=== PATIENT | female | born 1990 | race Caucasian/White ===

== ENCOUNTER 2017-09-25 11:00 | Emergency (ER) | END 2017-09-25 11:46 | disposition home or self-care (01) ==

== ENCOUNTER 2018-08-14 16:47 | Emergency (ER) | payer SELFPAY ==
[~2018-08-14] VITALS: Ht 162.6 cm; Wt 68.7 kg
[2018-08-14 16:59] VITALS: Ht 162.6 cm; Wt 68.7 kg
[2018-08-14] MEDS ORDERED: KETOROLAC 30 MG INJ IM STA (17:33)
[2018-08-14] MEDS ORDERED: IBUP-1542 PO (19:44)
[2018-08-14] MEDS ORDERED: ACET-141 PO (19:44)
[2018-08-14] MEDS ORDERED: ONDA4TAB14 PO (19:45)
--- NOTE | 2018-08-14 19:46 | ERD ---
ER Documentation Chief Complaint Chief Complaint RIGHT SUPRAPUBIC PAIN X 4 DAYS. 11/14 HPI 28-year-old female presents right pelvic pain x4 days. She admits to 11/14 pain, described as a burning sensation, intermittent pain. She states that the pain lasts for about 5-10 minutes at a time. Pain radiates to her right lower back area. Denies dysuria or fever. No prior similar symptoms. She has been taking Advil at home with mild relief. She admits to some nausea but denies vomiting or diarrhea. Denies chest pain or shortness of breath. Last menstrual period noted to be 07/25/18. Denies significant past medical history. Denies past surgeries. ROS All systems reviewed and are negative except as per history of present illness. Medications Home Meds Active Scripts Ondansetron (Ondansetron Odt) 4 Mg Tab.rapdis, 4 MG PO Q6H PRN for NAUSEA AND/OR VOMITING, #15 TAB Prov:RASHID HANKS 08/14/18 Acetaminophen* (Acetaminophen*) 500 MG Extra Strength Tablet, 500 MG PO Q4H PRN for PAIN AND OR ELEVATED TEMP, #30 TAB Prov:HANKSRASHID 08/14/18 Ibuprofen* (Motrin*) 600 Mg Tab, 600 MG PO Q6H PRN for PAIN AND OR ELEVATED TEMP, #30 TAB Prov:RASHID HANKS 08/14/18 Allergies Allergies: Coded Allergies: No Known Allergy (Unverified , 08/13/14) PMhx/Soc Medical and Surgical Hx: pt denies Medical Hx, pt denies Surgical Hx History of Surgery: No Anesthesia Reaction: No Hx Neurological Disorder: No Hx Respiratory Disorders: No Hx Cardiac Disorders: No Hx Psychiatric Problems: No Hx Miscellaneous Medical Probl: No Hx Alcohol Use: No Hx Substance Use: No Hx Tobacco Use: No Smoking Status: Never smoker Physical Exam Vitals Vital Signs Date Temp Pulse Resp B/P (MAP) Pulse Ox O2 O2 Flow FiO2 Time Delivery Rate 08/14/18 99.0 69 20 117/73 100 Room Air 19:52 (88) 08/14/18 98.5 76 20 140/79 99 16:59 (99) Physical Exam Const: No acute distress Resp: Clear to auscultation bilaterally Cardio: Regular rate and rhythm, no murmurs Abd: Soft, non distended. Normal bowel sounds, mild right lower quadrant tenderness to palpation, no Block sign, no rebound or guarding noted Skin: No petechiae or rashes Back: No midline or flank tenderness Ext: No cyanosis, or edema Neur: Awake and alert Psych: Normal Mood and Affect Result Diagram: 08/14/18 1745 08/14/18 1745 Results 24 hrs Laboratory Tests Test 08/14/18 17:45 08/14/18 17:49 White Blood Count 8.3 10^3/ul Red Blood Count 4.48 10^6/ul Hemoglobin 13.9 g/dl Hematocrit 41.1 % Mean Corpuscular Volume 91.7 fl Mean Corpuscular Hemoglobin 31.0 pg Mean Corpuscular Hemoglobin Concent 33.8 g/dl Red Cell Distribution Width 12.1 % Platelet Count 254 10^3/UL Mean Platelet Volume 10.3 fl Immature Granulocytes % 0.400 % Neutrophils % 65.4 % Lymphocytes % 24.1 % Monocytes % 6.7 % Eosinophils % 3.0 % Basophils % 0.4 % Nucleated Red Blood Cells % 0.0 /100WBC Immature Granulocytes # 0.030 10^3/ul Neutrophils # 5.4 10^3/ul Lymphocytes # 2.0 10^3/ul Monocytes # 0.6 10^3/ul Eosinophils # 0.3 10^3/ul Basophils # 0.0 10^3/ul Nucleated Red Blood Cells # 0.0 10^3/ul Urine Color YELLOW Urine Clarity CLEAR Urine pH 6.0 Urine Specific Harrison 1.017 Urine Ketones NEGATIVE mg/dL Urine Nitrite NEGATIVE mg/dL Urine Bilirubin NEGATIVE mg/dL Urine Urobilinogen NEGATIVE mg/dL Urine Leukocyte Esterase NEGATIVE Andrei/ul Urine Hemoglobin NEGATIVE mg/dL Urine Glucose NEGATIVE mg/dL Urine Total Protein NEGATIVE mg/dl Sodium Level 139 mmol/L Potassium Level 4.1 mmol/L Chloride Level 104 mmol/L Carbon Dioxide Level 22 mmol/L Anion Gap 13 Blood Urea Nitrogen 17 mg/dl Creatinine 0.61 mg/dl Est Glomerular Filtrat Rate mL/min > 60 mL/min Glucose Level 104 mg/dl Calcium Level 9.5 mg/dl Total Bilirubin 1.1 mg/dl Direct Bilirubin 0.00 mg/dl Indirect Bilirubin 1.1 mg/dl Aspartate Amino Transf (AST/SGOT) 30 IU/L Alanine Aminotransferase (ALT/SGPT) 31 IU/L Alkaline Phosphatase 84 IU/L Total Protein 8.6 g/dl Albumin 4.7 g/dl Globulin 3.90 g/dl Albumin/Globulin Ratio 1.20 Lipase 157 U/L POC Beta HCG, Qualitative NEGATIVE Current Medications Medications Dose Sig/Dean Start Time Status Last (Trade) Ordered Route PRN Stop Time Admin Dose Reason Admin Ketorolac 30 mg ONCE STAT 08/14/18 DC 08/14/18 Tromethamine IM 17:33 08/14/18 17:57 (Toradol) 17:35 Procedures/MDM Medical Decision Making: Differential diagnosis includes but not limited to acute gastritis, acute gastr oenteritis, appendicitis, cholecystitis, pancreatitis, ovarian torsion, nephrolithiasis Patient appeared well on physical exam. Nontoxic appearing. ED course: Patient was given Toradol. Symptoms improved with treatment. Labs: CBC showed no severe anemia, no elevated WBC to suggest infection CMP showed no electrolyte abnormalities, there was normal kidney and liver function Lipase was normal Urine was negative UA was negative for infection Imaging: Pelvic ultrasound was unremarkable, bilateral ovaries noted to be normal Given abdominal exam, there is low suspicion for an acute abdomen currently. Patient advised to return to the ER in 24 hours for a reexamination if her pain does not improve. Prescription(s): Patient given prescription for supportive medications . Patient advised to follow up with PCP in 1-2 days. Patient advised to return to ED for new or worsening symptoms. Patient stable on discharge from the ED. Disclaimer: Inadvertent spelling and grammatical errors are likely due to EHR/dictation software use and do not reflect on the overall quality of patient care. Also, please note that the electronic time recorded on this note does not necessarily reflect the actual time of the patient encounter. Departure Diagnosis: Primary Impression: Abdominal pain Abdominal location: right lower quadrant Qualified Codes: R10.31 - Right lower quadrant pain Condition: Fair Patient Instructions: Abdominal Pain Referrals: [facility] YOU HAVE RECEIVED A MEDICAL SCREENING EXAM AND THE RESULTS INDICATE THAT YOU DO NOT HAVE A CONDITION THAT REQUIRES URGENT TREATMENT IN THE EMERGENCY DEPARTMENT. FURTHER EVALUATION AND TREATMENT OF YOUR CONDITION CAN WAIT UNTIL YOU ARE SEEN IN YOUR DOCTORS OFFICE WITHIN THE NEXT 1-2 DAYS. IT IS YOUR RESPONSIBILITY TO MAKE AN APPOINTMENT FOR FOLOW-UP CARE. IF YOU HAVE A PRIMARY DOCTOR --you should call your primary doctor and schedule an appointment IF YOU DO NOT HAVE A PRIMARY DOCTOR YOU CAN CALL OUR PHYSICIAN REFERRAL HOTLINE AT IF YOU CAN NOT AFFORD TO SEE A PHYSICIAN YOU CAN CHOSE FROM THE FOLLOWING [facility] [address] [facility] [address] [facility] [address] [facility] [address] [facility] [address] [facility]. [facility]. [address] Additional Instructions: Call your primary care doctor TOMORROW for an appointment during the next 1-2 days.See the doctor sooner or return here if your condition worsens before your appointment time. Return in ER in 24 hours for recheck if abdominal pain does not improve. RASHID HANKS DO Aug 14, 2018 19:46
[2018-08-14 19:52] VITALS: BP 117/73; PULSE 69; RESP 20
== END 2018-08-14 19:54 | disposition home or self-care (01) ==
LOC: FTE 16:47
DX: R10.31 Right lower quadrant pain (principal); R11.0 Nausea
CPT/HCPCS: 36415; 76856; 80053; 81003; 81025; 83690; 85025; 96372; 99285; J1885